=== PATIENT | female | born 1955 | race Caucasian/White ===

== ENCOUNTER 2020-05-07 08:42 | Emergency (ER) | payer MEDICARE, OTHER ==
[~2020-05-07 08:42] MED LIST: IBUPROFEN600 MG PO
== END 2020-05-07 10:54 | disposition home or self-care (01) ==
LOC: ER1 08:42
DX: M79.672 Pain in left foot (principal); E11.9 Type 2 diabetes mellitus without complications; I10 Essential (primary) hypertension
CPT/HCPCS: 73630; 96372; 99283; J1885

== ENCOUNTER → 2020-05-14 | Outpatient (CLI) | payer MEDICARE, OTHER ==
[~2020-05-14] VITALS: Ht 160 cm; Wt 73.9 kg
== END ==
LOC: OPSV 05-12 07:00
DX: M14.672 Charcot's joint, left ankle and foot (principal); S93.622D Sprain of tarsometatarsal ligament of left foot, subsequent encounter; E11.9 Type 2 diabetes mellitus without complications; X58.XXXA Exposure to other specified factors, initial encounter
CPT/HCPCS: 96365; 96366; J2430; J7030

== ENCOUNTER → 2020-06-19 | Outpatient (CLI) | payer MEDICARE, OTHER ==
[~2020-06-19] VITALS: Ht 160 cm; Wt 73.9 kg
== END ==
LOC: OPSV 07:00
DX: M14.672 Charcot's joint, left ankle and foot (principal); S90.32XA Contusion of left foot, initial encounter; E11.9 Type 2 diabetes mellitus without complications; M79.672 Pain in left foot; S93.622D Sprain of tarsometatarsal ligament of left foot, subsequent encounter
CPT/HCPCS: 96365; 96366; J2430; J7030